=== PATIENT | male | born 1995 | race Caucasian/White ===

== ENCOUNTER 2017-01-18 12:29 | Emergency (ER) | payer MEDICAID, OTHER ==
[2017-01-18] MEDS ORDERED: DIPH/PERTUSS(ACELL)/TETANUS VAC/PF 0.5 ML SYR (>=10YO) IM ONE (13:04)
[2017-01-18] MEDS ORDERED: OXYCODONE-ACETAMINOPHEN 5-325 MG TABLET PO ONE (13:04)
[2017-01-18] MEDS ORDERED: LIDOCAINE 1%/EPINEPHRINE INJ 20 ML VIAL INJ ONE (13:04)
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
[2017-01-18] MEDS ORDERED: LIDOCAINE 1% INJ-PF (10 MG/ML) 30 ML SDV ONE (14:03)
[2017-01-18] MEDS ORDERED: ONDANSETRON 4 MG TAB.RAPDIS PO ONE (14:31)
--- NOTE | 2017-01-18 15:16 | RADIOLOGY REPORT (SQ) ---
EXAM DESCRIPTION: TIBIA FIBULA RIGHT COMPLETED DATE/TIME: 01/18/2017 3:00 pm REASON FOR STUDY: pain, laceration COMPARISON: None. NUMBER OF VIEWS: Two views. TECHNIQUE: Two radiographic images acquired of the right tibia and fibula to include the knee and an kle in at least one projection. LIMITATIONS: None. FINDINGS: MINERALIZATION: Normal. BONES: No acute fracture or dislocation. No worrisome bone lesions. SOFT TISSUES: No obvious swelling or foreign body. OTHER: No other significant finding. IMPRESSION: NEGATIVE STUDY OF THE RIGHT TIBIA AND FIBULA. NO RADIOGRAPHIC EVIDENCE OF ACUTE INJURY. TECHNICAL DOCUMENTATION: JOB ID: [id number] [employer]- All Rights Reserved
[2017-01-18 15:33] VITALS: BP 122/76
== END 2017-01-18 15:33 | disposition home or self-care (01) ==
LOC: ER 12:29
PROC: 0HQKXZZ Repair Right Lower Leg Skin, External Approach (ICD-10-PCS; principal; 2017-01-18)
DX: S81.811A Laceration without foreign body, right lower leg, initial encounter (principal); X58.XXXA Exposure to other specified factors, initial encounter
CPT/HCPCS: 99283; 90471; 73590; 90715; 12002; S0119; J3490

== ENCOUNTER 2017-01-31 12:05 | Emergency (ER) | payer OTHER ==
[2017-01-31 12:22] VITALS: BP 134/87
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
== END 2017-01-31 13:01 | disposition home or self-care (01) ==
LOC: ER 12:05
DX: Z48.02 Encounter for removal of sutures (principal)

== ENCOUNTER 2017-07-28 21:50 | Emergency (ER) | payer OTHER ==
[2017-07-28 22:18] VITALS: BP 126/67
[2017-07-29] MEDS ORDERED: ALPRAZOLAM 0.5 MG TABLET PO ONE (00:11)
--- NOTE | 2017-07-29 00:16 | ER Document Report ---
ED General - General Chief Complaint: Anxiety Stated Complaint: ANXIOUS Time Seen by Provider: 07/28/17 23:49 Mode of Arrival: Ambulatory Information source: Patient Notes: 22-year-old male presents to ED for "anxiety and chest tightness tonight with his heart feel like it was racing and getting hot and cold flashes. He states he has been under a lot of stress for the past few days and is thought frequently I about an incident that happened a year ago when he had a bad acid trip. He states that he got himself worked up until he had a panic attack. He states he has not been able to sleep for the last couple days due to frequently thinking about this bad acid trip. He states tonight that he started feeling a funny strange feeling like a tightness in his chest. He states his pulse got really fast, then his blood pressure got elevated, and he just does not think he could sleep at all tonight. He states he just needs something to help him until he can follow-up with psych. He states he plans to call [facility] psych tomorrow as he has seen them in the past. He states he has had thoughts of hurting himself but he knows he will never do it states he has not thought of killing himself just had thoughts off and on of just doing some to himself so he would feel better. He lives with his parents. TRAVEL OUTSIDE OF THE [place] IN LAST 30 DAYS: No - HPI Onset: Last week Onset/Duration: Intermittent Quality of pain: Other Severity: Moderate - Tight Pain Level: 3 Associated symptoms: Body/muscle aches, Nonproductive cough, Rhinnorhea, Other - Anxiety Exacerbated by: Other - Thinking about past incidents Relieved by: Denies Similar symptoms previously: Yes Recently seen / treated by doctor: No - Related Data Allergies/Adverse Reactions: No Known Allergies Allergy (Verified 01/31/17 12:20) Past Medical History - General Information source: Patient - Social History Smoking Status: Former Smoker Cigarette use (# per day): No Chew tobacco use (# tins/day): No Smoking Education Provided: No Frequency of alcohol use: None Drug Abuse: None - Has a history of drug abuse but none at this time none for over a year Occupation: None Lives with: Family Family History: Arthritis, DM, Hyperlipidemia, Hypertension. denies: CAD - Anginal, COPD, CVA, Malignancy, Thyroid Disfunction Patient has suicidal ideation: No Patient has homicidal ideation: No - Past Medical History Cardiac Medical History: Reports: None Pulmonary Medical History: Reports: None EENT Medical History: Reports: None Neurological Medical History: Reports: None Endocrine Medical History: Reports: None Renal/ Medical History: Reports: None Malignancy Medical History: Reports None GI Medical History: Reports: None Musculoskeltal Medical History: Reports Hx Musculoskeletal Trauma Skin Medical History: Reports None Psychiatric Medical History: Reports: Hx Anxiety, Hx Depression Traumatic Medical History: Reports: Hx Fractures - Wrist Infectious Medical History: Reports: None Past Surgical History: Reports: Hx Orthopedic Surgery - Immunizations Immunizations up to date: Yes Hx Diphtheria, Pertussis, Tetanus Vaccination: No Review of Systems - Review of Systems Constitutional: Recent illness EENT: Nose discharge Cardiovascular: Palpitations Respiratory: Cough Gastrointestinal: No symptoms reported Genitourinary: No symptoms reported Male Genitourinary: No symptoms reported Musculoskeletal: No symptoms reported Skin: No symptoms reported Hematologic/Lymphatic: No symptoms reported Neurological/Psychological: Depression, Anxiety, Other - Frequently thinking about an incident that happened a year ago when he had a bad acid trip -: Yes All other systems reviewed and negative Physical Exam - Vital signs Vitals: Temp Pulse BP Pulse Ox 98.6 F 71 126/67 H 100 07/28/17 22:18 07/28/17 22:18 07/28/17 22:18 07/28/17 22:18 Interpretation: Normal - General General appearance: Appears well, Alert - HEENT Head: Normocephalic, Atraumatic Eyes: Normal Pupils: PERRL Ears: Normal External canal: Normal Tympanic membrane: Normal Sinus: Normal Nasal: Swelling, Clear rhinorrhea Mouth/Lips: Normal Mucous membranes: Normal Pharynx: Normal Neck: Normal - Respiratory Respiratory status: No respiratory distress Chest status: Nontender Breath sounds: Nonproductive cough Chest palpation: Normal - Cardiovascular Rhythm: Regular Heart sounds: Normal auscultation Murmur: No - Abdominal Inspection: Normal Distension: No distension Bowel sounds: Normal Tenderness: Nontender Organomegaly: No organomegaly - Back Back: Normal, Nontender - Extremities General upper extremity: Normal inspection, Nontender, Normal color, Normal ROM , Normal temperature General lower extremity: Normal inspection, Nontender, Normal color, Normal ROM , Normal temperature, Normal weight bearing. No: Armando's sign - Neurological Neuro grossly intact: Yes Cognition: Normal Orientation: AAOx4 Bette Coma Scale Eye Opening: Spontaneous [place] Coma Scale Verbal: Oriented Bette Coma Scale Motor: Obeys Commands Bette Coma Scale Total: 15 Speech: Normal Motor strength normal: LUE, RUE, LLE, RLE Sensory: Normal - Psychological Associated symptoms: Normal affect, Normal mood - Skin Skin Temperature: Warm Skin Moisture: Dry Skin Color: Normal Course - Re-evaluation Re-evalutation: 07/29/17 00:37 Patient states he is feeling much better he just knows he cannot sleep because he is very anxious and concerned about continuing to have these thoughts about this as a trip a year ago. He states that he really would like is something to help him to sleep tonight and for couple days until he can get into psych. Patient states she has had a history of anxiety and depression in the past. He states he has gone to [facility] psych before and would like to try to get back into them again. Will write him for Xanax 0.5 today and for the next 3 days. Patient and his mother were instructed to please follow-up with psych as soon as possible. - Vital Signs Vital signs: Temp Pulse Resp BP Pulse Ox 98.6 F 71 126/67 H 100 07/28/17 22:18 07/28/17 22:18 07/28/17 22:18 07/28/17 22:18 Discharge - Discharge Clinical Impression: Anxiety URI (upper respiratory infection) Qualifiers: URI type: unspecified URI Qualified Code(s): J06.9 - Acute upper respiratory infection, unspecified Condition: Stable Disposition: HOME, SELF-CARE Instructions: Anxiety ([facility]) Additional Instructions: Anxiety The physician feels that some of your health problems are being caused by anxiety. Anxiety affects your health in many ways. Anxiety alone can cause palpitations, sweats, chest pains, abdominal pains, shortness of breath, and headaches. It contributes to ulcer disease, high blood pressure, irritable bowel syndrome, and has been shown to cause flare-ups of many other diseases. Anxiety is not a simple disorder to treat. If the anxiety is due to recent life stresses, you may simply need time to "work through" the changes. If the anxiety is due to an underlying unhappiness with yourself or due to psychiatric disturbance, professional help will be needed. Your physician can refer you for further help if needed. Anti-anxiety medication is occasionally given if the stress is acute or if you are having trouble sleeping. Chronic or frequent use of these medications is not a good idea because the body becomes reliant on it, preventing you from dealing with life's normal stresses. UPPER RESPIRATORY ILLNESS: You have a viral infection of the respiratory passages -- a "cold." This common infection causes nasal congestion, drainage, and often sore throat and cough. It is highly contagious. The disease usually lasts about 10 to 14 days. There is no "cure" for the viral infection -- it must run its course. If there is a complication, such as bacterial infection in the nose, sinuses, middle ear, or bronchial tubes, antibiotics may be required. The antibiotics won't affect the virus. Drink plenty of fluids. A humidifier may help. An expectorant medication or decongestant may make you more comfortable. Use acetaminophen or ibuprofen for fever or aches. See the doctor if fever persists over two days, if there is any significant worsening of your symptoms, or if you simply fail to improve as expected. Benzodiazepines You have been given a benzodiazepine medication. Examples of this type of medicine include Valium, Xanax, Librium, Ativan, and Halcion. Benzodiazepines have many uses. Medications of this type are used for insomnia, anxiety, muscle spasms, seizures, and drug and alcohol withdrawal. You may become very drowsy when you first take the medication. You should not drive or operate machinery while under its effects. Do not combine the medication with alcohol, or with any other medication without talking to your doctor. Do not take if without specific instruction from your health aide. Some benzodiazepines may have harmful interactions with oral antifungal medicines such as ketoconazole, itraconazole, and nefazodone. If you are taking an antifungal medicine, discuss this with your doctor before taking benzodiazepines. USE OF ACETAMINOPHEN (Tylenol): Acetaminophen may be taken for pain relief or fever control. It's much safer than aspirin, offering a wider range of "safe" dosages. It is safe during . Some brand names are Tylenol, Panadol, Datril, Anacin 3, Tempra, and Liquiprin. Acetaminophen can be repeated every four hours. The following are maximum recommended dosages: >89 pounds or adults 650 mg to 900 mg Acetaminophen can be repeated every four hours. Maximum dose not to exceed 4000 mg a day. FOLLOW-UP CARE: If you have been referred to a physician for follow-up care, call the physician s office for an appointment as you were instructed or within the next two days. If you experience worsening or a significant change in your symptoms, notify the physician immediately or return to the Emergency Department at any time for re-evaluation. Prescriptions: Alprazolam [Xanax] 0.5 mg PO QHS PRN #3 tablet PRN Reason: Referrals: [facility] [Provider Group] - Follow up as needed
--- NOTE | 2017-07-29 06:02 | EKG REPORT ---
SEVERITY:- OTHERWISE NORMAL ECG - SINUS ARRHYTHMIA, RATE [id number] : Confirmed by: Wallace Horne MD 29-Jul-2017 06:01:28
== END 2017-07-29 00:27 | disposition home or self-care (01) ==
LOC: ER 21:50
DX: J06.9 Acute upper respiratory infection, unspecified (principal); F41.9 Anxiety disorder, unspecified; R07.9 Chest pain, unspecified; Z87.891 Personal history of nicotine dependence
CPT/HCPCS: 93005; 93010; 99283